=== PATIENT | female | born 1980 | race African-American/Black ===

== ENCOUNTER 2024-03-11 17:56 | Emergency (ER) | payer MEDICAID ==
[~2024-03-11] VITALS: Ht 167.6 cm; Wt 75.0 kg
[2024-03-11 18:28] VITALS: BP 152/79; PULSE 108; RESP 18; TEMP 98.2; O2SAT 100
[2024-03-11] MEDS ORDERED: ERYT60GE9 TP (19:50)
== END 2024-03-11 20:03 | disposition home or self-care (01) ==
LOC: ER 17:56
DX: L70.0 Acne vulgaris (principal); D64.9 Anemia, unspecified; Z98.890 Other specified postprocedural states
CPT/HCPCS: 99283

== ENCOUNTER 2024-08-13 18:18 | Emergency (ER) | payer MEDICAID, OTHER ==
[~2024-08-13] VITALS: Ht 157.5 cm; Wt 64.9 kg
[~2024-08-13 18:18] MED LIST: ERYT60GE9 TP
[2024-08-13 18:22] VITALS: O2SAT 100
[2024-08-13 18:27] VITALS: BP 168/117; PULSE 101; RESP 16; TEMP 36.8; O2SAT 100
[2024-08-13 20:27] LABS: HEMATOCRIT. 38.4 % (36.0-48.0); MEAN CORPUSCULAR HEMOGLOBIN 25.7 pg (28.0-32.0); MEAN CORPUSCULAR HGB CONC 31.1 g/dL (31.0-37.0); MEAN CORPUSCULAR VOLUME 82.4 fL (81.0-99.0); MEAN PLATELET VOLUME 9.1 fl (7.4-10.4); PLATELET 277 x1000/uL (130-400); RED BLOOD CELL COUNT 4.66 mill/uL (4.2-5.4); RED CELL DISTRIBUTION WIDTH 16.3 % (11.6-14.6); WHITE BLOOD COUNT 10.1 x1000/uL (4.5-11.0)
[2024-08-13 20:32] LABS: CHLORIDE 102 mEq/L (98-107); SODIUM 132 mEq/L (136-145)
[2024-08-13 20:33] LABS: CARBON DIOXIDE 23 mEq/L (21-32)
[2024-08-13 20:34] LABS: CALCIUM 9.1 mg/dL (8.7-10.4)
[2024-08-13 20:35] LABS: DIFFERENTIAL COMMENT 1
[2024-08-13 20:38] LABS: CREATININE 0.7 mg/dL (0.6-1.0); GLUCOSE 165 mg/dL (70-105)
[2024-08-13 20:39] LABS: UREA NITROGEN BLOOD 9 mg/dL (9-23)
[2024-08-13 20:51] LABS: PLATELET ESTIMATE NORMAL
[2024-08-13] MEDS: ONDANSETRON 4MG ODT PO ONE (22:50)
[2024-08-13] MEDS: FAMOTIDINE 20MG TABLET PO ONE (22:50)
[2024-08-13] MEDS: MAGNESIUM/ALUMINUM HYDROXIDE/SIMETHICONE 30ML UDC PO ONE (22:50)
[2024-08-14 00:11] LABS: CLARITY URINE CLOUDY (CLEAR); COLOR URINE YELLOW (YELLOW)
[2024-08-14 00:12] LABS: GLUCOSE URINE TRACE (NEGATIVE); KETONES URINE NEGATIVE (NEGATIVE); NITRITE URINE NEGATIVE (NEGATIVE); OCCULT BLOOD URINE NEGATIVE (NEGATIVE); PROTEIN URINE TRACE (NEGATIVE)
[2024-08-14 00:13] LABS: LEUKOCYTE ESTERASE URINE NEGATIVE (NEGATIVE)
[2024-08-14 00:21] LABS: AMORPHOUS SEDIMENT URINE 2+ /lpf; BACTERIA URINE NONE SEEN; RBC URINE 0-2 /hpf (0-2); SQUAMOUS EPITHELIAL CELL URINE 1+ /lpf (RARE/1+)
[2024-08-14] MEDS ORDERED: CEPH250C2 MT (00:24)
== END 2024-08-14 00:44 | disposition home or self-care (01) ==
LOC: ER 18:18
DX: A08.4 Viral intestinal infection, unspecified (principal); Z98.890 Other specified postprocedural states
CPT/HCPCS: 99284; 80048; 81003; 83690; 85025; 87086; 36415; Q0162